=== PATIENT | female | born 1945 | race African-American/Black ===

== ENCOUNTER 2016-04-02 13:18 | Emergency (ER) | payer OTHER ==
[~2016-04-02] VITALS: Ht 162.6 cm; Wt 62.6 kg
[~2016-04-02 13:18] MED LIST: ASPIR 8181 MG PO; CIPROFLOXACIN500 M1 PO; FISH OIL 1,0001 EAC8 PO; FLONASE 0.05%50 MCG NASAL; NITROGLYCERIN0.4 MG SUBLING; NORCO 5-325 TA1 EACH PO; PHENERGAN 25 MG25 M1 PO; PRILOSEC20 MG PO; PRINIVIL20 MG PO; TESSALON PERLE100 MG PO; TRAMADOL 50 MG50 MG PO; VIRTUSSIN AC L473 ML PO; VITAMIN D 5050000 I1 PO; ZOCOR20 MG PO; ZPAK PO
[2016-04-02] MEDS ORDERED: HYDROCODONE-AP1 EAC6 PO (13:54)
[2016-04-02] MEDS ORDERED: MECLIZINE HCL12.5 MG PO (13:54)
[2016-04-02 16:10] VITALS: BP 142/92
== END 2016-04-02 16:15 | disposition home or self-care (01) ==
LOC: ER 13:18
DX: S09.90XA Unspecified injury of head, initial encounter (principal); I10 Essential (primary) hypertension; F17.210 Nicotine dependence, cigarettes, uncomplicated; W19.XXXA Unspecified fall, initial encounter; Y93.89 Activity, other specified; Y92.481 Parking lot as the place of occurrence of the external cause; Y99.8 Other external cause status

== ENCOUNTER 2016-10-06 15:32 | Emergency (ER) | payer OTHER ==
[~2016-10-06] VITALS: Ht 162.6 cm; Wt 59.9 kg
[~2016-10-06 15:32] MED LIST changes: +HYDROCODONE-AP1 EAC6 PO; +MECLIZINE HCL12.5 MG PO
[2016-10-06] MEDS ORDERED: NEXIUM40 MG PO (16:01)
[2016-10-06] MEDS ORDERED: SENOKOT-S1 TA1 PO (16:18)
[2016-10-06] MEDS ORDERED: HYDROCODONE-AP1 EAC6 PO (16:25)
[2016-10-06 17:09] VITALS: BP 153/95
== END 2016-10-06 17:09 | disposition home or self-care (01) ==
LOC: ER 15:32
DX: M19.011 Primary osteoarthritis, right shoulder (principal); I10 Essential (primary) hypertension; E78.00 Pure hypercholesterolemia, unspecified; F17.210 Nicotine dependence, cigarettes, uncomplicated; Z85.3 Personal history of malignant neoplasm of breast; Z90.12 Acquired absence of left breast and nipple

== ENCOUNTER → 2017-01-06 | Outpatient (CLI) | payer OTHER ==
[~2017-01-06] MED LIST changes: +NEXIUM40 MG PO; +SENOKOT-S1 TA1 PO
== END ==
LOC: CAT 01-04 11:09
DX: R05 Cough (principal)

== ENCOUNTER → 2017-02-14 | Outpatient (CLI) | payer OTHER | LOC: RAD 03:13 | DX: Z12.31 Encounter for screening mammogram for malignant neoplasm of breast (principal) ==

== ENCOUNTER → 2018-02-15 | Outpatient (CLI) | payer OTHER | LOC: RAD 01:24 | DX: Z12.31 Encounter for screening mammogram for malignant neoplasm of breast (principal) ==

== ENCOUNTER → 2019-02-28 | Outpatient (CLI) | payer OTHER | LOC: RAD 02-16 14:19 | DX: Z12.31 Encounter for screening mammogram for malignant neoplasm of breast (principal) ==

== ENCOUNTER → 2020-03-19 | Outpatient (CLI) | payer OTHER | LOC: BC 03-04 16:12 | PROVIDERS: ATTEND Internal Medicine | DX: Z12.31 Encounter for screening mammogram for malignant neoplasm of breast (principal) ==

== ENCOUNTER → 2021-03-18 | Outpatient (CLI) | payer OTHER | LOC: BC 12:44 | PROVIDERS: ATTEND Internal Medicine | DX: Z12.31 Encounter for screening mammogram for malignant neoplasm of breast (principal); N64.89 Other specified disorders of breast ==